=== PATIENT | male | born 1995 | race Caucasian/White ===

== ENCOUNTER → 2019-12-19 10:48 | Outpatient (CLI) | payer SELFPAY ==
[2015-04-06 13:41] VITALS: BMI 18.1
[2019-12-19 14:00] LABS: Hepatitis C Antibody Non-Reactive (Nonreactive)
== END ==
PROVIDERS: PCP Physician Assistant; Referring Provider Physician Assistant Medical; Visit Provider Physician Assistant Medical
DX: L81.4 Other melanin hyperpigmentation (principal); D22.5 Melanocytic nevi of trunk; L08.9 Local infection of the skin and subcutaneous tissue, unspecified; L90.6 Striae atrophicae; L40.0 Psoriasis vulgaris; S80.811A Abrasion, right lower leg, initial encounter; L30.9 Dermatitis, unspecified; Z71.89 Other specified counseling
CPT/HCPCS: 36415; 86803

== ENCOUNTER 2020-11-12 16:18 | Outpatient (RCR) | payer MEDICARE, SELFPAY ==
[2015-04-06 13:41] VITALS: BMI 18.1
== END 2021-01-13 23:59 ==
LOC: IMMUN 16:18
PROVIDERS: PCP Physician Assistant; Referring Provider Family Medicine; Visit Provider Family Medicine
DX: Z23 Encounter for immunization (principal)
CPT/HCPCS: 0001A; 0002A; 91300